=== PATIENT | male | born 2000 | race Caucasian/White ===

== ENCOUNTER 2024-11-30 14:11 | Emergency (ER) | payer OTHER ==
[~2024-11-30] VITALS: Ht 182.9 cm; Wt 82.0 kg
[2024-11-30 14:20] VITALS: BP 128/82; PULSE 86; RESP 14; TEMP 36.9; O2SAT 98
== END 2024-11-30 15:43 | disposition left against medical advice (07) ==
LOC: ER 14:23
DX: R10.9 Unspecified abdominal pain (principal); Z53.21 Procedure and treatment not carried out due to patient leaving prior to being seen by health care provider